=== PATIENT | female | born 1980 | race Caucasian/White ===

== ENCOUNTER 2020-08-28 14:34 | Emergency (ER) | payer OTHER ==
[2020-08-28 16:23] LABS: BILIRUBIN 1+ mg/dL (NEGATIVE); BLOOD NEGATIVE Ery/uL (NEGATIVE); CLARITY CLEAR (CLEAR); COLOR YELLOW (YELLOW); GLUCOSE (U) NORMAL (NORMAL); LEUKOCYTES NEGATIVE Leu/uL (NEGATIVE); NITRITE NEGATIVE (NEGATIVE); PROTEIN NEGATIVE (NEGATIVE); SPECIFIC GRAVITY 1.025 (1.001-1.030); pH 6.5 (5.0-9.0)
[2020-08-28] MEDS ORDERED: NORCO 5-325 TA1 EACH PO (17:12)
[2020-08-28] MEDS ORDERED: MACROBID100 MG PO (17:13)
[2020-08-29] MEDS ORDERED: REGLAN5 MG PO (21:45)
[2020-08-29] MEDS ORDERED: ZOFRAN4 M1 PO (21:45)
== END 2020-08-28 17:35 | disposition home or self-care (01) ==
LOC: FER 14:34
PROVIDERS: Emergency Medicine
DX: M54.5 Low back pain (principal); R30.0 Dysuria; R31.9 Hematuria, unspecified; R35.0 Frequency of micturition; F17.210 Nicotine dependence, cigarettes, uncomplicated
CPT/HCPCS: 72131; 81003

== ENCOUNTER 2020-08-29 17:09 | Emergency (ER) | payer OTHER ==
[~2020-08-29 17:09] MED LIST: MACROBID100 MG PO; NORCO 5-325 TA1 EACH PO
[2020-08-29 18:27] LABS: BASOPHIL 0.6 % (0-2); EOSINOPHIL 3.7 % (0-5); HCT 46.2 % (37.0-47.0); HGB 15.5 g/dl (12.5-16.0); LYMPHOCYTE 32.1 % (15-48); MCH 32.6 pg (25.0-31.0); MCHC 33.5 g/dL (32.0-36.0); MCV 97.3 fL (78.0-100.0); MONOCYTE 4.6 % (0-12); MPV 12.3 fL (6.0-9.5); NEUTROPHIL 58.6 % (41-80); NRBC 0; PLT 140 K/uL (150-400); RBC 4.75 M/uL (4.20-5.40); RDW 12.8 % (11.5-14.0); WBC 8.1 K/uL (4.0-10.5)
[2020-08-29 18:49] LABS: BUN/CREAT RATIO (CALC) 21.4 RATIO; CREATININE 0.56 mg/dL (0.51-0.95); POTASSIUM 3.8 mmol/L (3.5-5.1)
[2020-08-29 19:29] LABS: CORONAVIRUS 2019 SARS-COV-2 NEGATIVE (NEGATIVE); INFLUENZA A NAA NEGATIVE (NEGATIVE)
[2020-08-29] MEDS ORDERED: REGLAN5 MG PO (21:45)
[2020-08-29] MEDS ORDERED: ZOFRAN4 M1 PO (21:45)
[2020-08-29 22:05] LABS: ALBUMIN 3.7 g/dL (3.4-5.0); BILIRUBIN - DIRECT 0.1 mg/dL (0.00-0.20); BILIRUBIN - TOTAL 0.2 mg/dL (0.2-1.0); GLOBULIN (CALCULATION) 3.4 g/dL; TOTAL PROTEIN 7.1 g/dL (6.4-8.2)
== END 2020-08-29 22:02 | disposition home or self-care (01) ==
LOC: FER 17:09
PROVIDERS: Emergency Medicine; Nurse Practitioner Family
DX: R10.9 Unspecified abdominal pain (principal); R11.2 Nausea with vomiting, unspecified; M54.5 Low back pain; I10 Essential (primary) hypertension; F17.210 Nicotine dependence, cigarettes, uncomplicated; Z79.899 Other long term (current) drug therapy; Z20.822 Contact with and (suspected) exposure to COVID-19
CPT/HCPCS: 36415; 80048; 80076; 83690; 85025; 87339; J1885; J2270; J2405; J7030; U0002

== ENCOUNTER 2021-03-16 16:35 | Emergency (ER) | payer OTHER ==
[~2021-03-16 16:35] MED LIST changes: +REGLAN5 MG PO; +ZOFRAN4 M1 PO
[2021-03-16] MEDS ORDERED: NORCO 5-325 TA1 EACH PO (21:28)
== END 2021-03-16 21:38 | disposition home or self-care (01) ==
LOC: FER 16:35
DX: K04.7 Periapical abscess without sinus (principal); I10 Essential (primary) hypertension
CPT/HCPCS: 99283; Q0163

== ENCOUNTER 2021-04-12 16:15 | Emergency (ER) | payer OTHER ==
[2021-04-12] MEDS ORDERED: BACLOFEN 10MG T10 MG PO (20:02)
[2021-04-12] MEDS ORDERED: NAPROXEN500 MG PO (20:02)
[2021-04-13] MEDS ORDERED: NORCO 5-325 TA1 EACH PO (14:41)
== END 2021-04-12 20:35 | disposition home or self-care (01) ==
LOC: FER 16:15
DX: M54.41 Lumbago with sciatica, right side (principal); I10 Essential (primary) hypertension; F17.210 Nicotine dependence, cigarettes, uncomplicated
CPT/HCPCS: 96372; 99283; J1100; J1885

== ENCOUNTER 2021-04-13 11:25 | Emergency (ER) | payer OTHER ==
[~2021-04-13 11:25] MED LIST changes: +BACLOFEN 10MG T10 MG PO; +NAPROXEN500 MG PO
[2021-04-13 13:37] LABS: BASOPHIL 0.2 % (0-2); EOSINOPHIL 0.1 % (0-5); HCT 45.8 % (37.0-47.0); HGB 15.8 g/dl (12.5-16.0); LYMPHOCYTE 12.8 % (15-48); MCHC 34.5 g/dL (32.0-36.0); MCV 89.8 fL (78.0-100.0); NRBC 0; PLT 164 K/uL (150-400); WBC 9.1 K/uL (4.0-10.5)
[2021-04-13 13:57] LABS: BUN/CREAT RATIO (CALC) 32.1 RATIO; CREATININE 0.56 mg/dL (0.51-0.95)
[2021-04-13 14:09] LABS: BILIRUBIN 1+ mg/dL (NEGATIVE); BLOOD NEGATIVE Ery/uL (NEGATIVE); CLARITY HAZY (CLEAR); COLOR YELLOW (YELLOW); GLUCOSE (U) NORMAL (NORMAL); LEUKOCYTES NEGATIVE Leu/uL (NEGATIVE); NITRITE NEGATIVE (NEGATIVE); PROTEIN NEGATIVE (NEGATIVE); pH 6.5 (5.0-9.0)
[2021-04-13] MEDS ORDERED: NORCO 5-325 TA1 EACH PO (14:41)
== END 2021-04-13 14:59 | disposition home or self-care (01) ==
LOC: FER 11:25
PROVIDERS: Nurse Practitioner Family
DX: M54.41 Lumbago with sciatica, right side (principal); M47.816 Spondylosis without myelopathy or radiculopathy, lumbar region; I10 Essential (primary) hypertension; F17.210 Nicotine dependence, cigarettes, uncomplicated; Z90.710 Acquired absence of both cervix and uterus; Z98.890 Other specified postprocedural states
CPT/HCPCS: 36415; 72131; 80048; 81003; 85025; 96372; J1100; J1885

== ENCOUNTER 2021-08-21 16:51 | Emergency (ER) | payer OTHER ==
[~2021-08-21 16:51] MED LIST changes: +OXYCODON-ACETA1 EAC1 PO
[2021-08-21 17:23] LABS: BILIRUBIN NEGATIVE (NEGATIVE); BLOOD NEGATIVE Ery/uL (NEGATIVE); CLARITY CLEAR (CLEAR); COLOR YELLOW (YELLOW); GLUCOSE (U) NORMAL (NORMAL); LEUKOCYTES NEGATIVE Leu/uL (NEGATIVE); NITRITE NEGATIVE (NEGATIVE); PROTEIN NEGATIVE (NEGATIVE); UROBILINOGEN 0.2 mg/dL (0.2-1.0)
[2021-08-21 20:00] LABS: CORONAVIRUS 2019 SARS-COV-2 NEGATIVE (NEGATIVE); INFLUENZA A NAA NEGATIVE (NEGATIVE)
[2021-08-21] MEDS ORDERED: MEDROL 4MG DOSEP4 MG PO (21:44)
[2021-08-21] MEDS ORDERED: CYCLOBENZAPRINE10 MG PO (21:44)
[2021-08-23] MEDS ORDERED: OXYCODONE-ACET1 EACH PO (12:46)
== END 2021-08-21 22:11 | disposition home or self-care (01) ==
LOC: FER 16:51
PROVIDERS: Emergency Medicine; Nurse Practitioner Family
DX: M54.50 Low back pain, unspecified (principal); I10 Essential (primary) hypertension; Z20.822 Contact with and (suspected) exposure to COVID-19
CPT/HCPCS: 81003; 96372; J1100; J1885; U0002